=== PATIENT | male | born 1985 | race Caucasian/White ===

== ENCOUNTER 2016-10-18 21:55 | Day surgery (SDC) | payer OTHER ==
[~2016-10-18] VITALS: Ht 177.8 cm; Wt 92.3 kg
[2016-10-18 22:30] LABS: HEMATOCRIT 47.7 % (38.0-50.0); MCH 30.1 PG (29.0-34.0); MCV 86.1 FL (86-99); MEAN PLAT.VOLUME 10.4 uM^3 (9.0-12.4); PLATELET COUNT 271 K/uL (156-360); RBC DIS.WIDTH-CV 11.9 % (11.8-14.6); RBC DIS.WIDTH-SD 37.5 % (39-53); RED BLOOD COUNT 5.54 M/uL (4.00-5.50); WHITE BLOOD COUNT 11.4 K/uL (4.1-10.2)
[2016-10-18 22:42] LABS: CHLORIDE 106 mEq/L (99-109); SODIUM 138 mEq/L (136-147)
[2016-10-18 22:44] LABS: GLUCOSE 114 mg/dL (70-99)
[2016-10-18 22:46] LABS: ANION GAP 11 MEQ/L (2-14); TOTAL BILIRUBIN 1.1 mg/dL (0.0-1.0)
[2016-10-18 22:48] LABS: ALKALINE PHOSPHATASE 69 IU/L (3-129); GFR ESTIMATE (CALCULATED) > 59 mL/min/
[2016-10-18 22:49] LABS: UREA NITROGEN (BUN) 10 mg/dL (9-23)
[2016-10-18] MEDS ORDERED: MEN'S ONE DAIL1 EACH PO (23:33)
[2016-10-18] MEDS ORDERED: ALKA-SELTZER G1 EAC1 PO (23:33)
[2016-10-19 00:31] LABS: ADD MIUA? NO; BILIRUBIN NEGATIVE; BLOOD NEGATIVE; COLOR YELLOW ((YELLOW)); GLUCOSE (STRIP) NEGATIVE; KETONES 5; LEUKOCYTES NEGATIVE; NITRITE NEGATIVE; PROTEIN (STRIP) NEGATIVE; SPECIFIC GRAVITY 1.026 (1.000-1.030); UCUL ADDED? NO; UROBILINOGEN 0.2 MG/DL (0.2-1.0)
[2016-10-19 08:24] VITALS: BP 124/60
[2016-10-19 12:06] VITALS: BP 113/59
[2016-10-19 16:14] VITALS: BP 110/55
[2016-10-19 19:24] VITALS: BP 129/67
[2016-10-19] MEDS ORDERED: COLACE100 MG PO (21:11)
[2016-10-19] MEDS ORDERED: HYDROCODON-ACE1 EAC7 PO (21:11)
== END 2016-10-19 22:29 | disposition home or self-care (01) ==
LOC: EME 21:55 → SDC 10-19 00:24 → 2SOUTH 10-19 01:45 → 2EASTP 10-19 01:45 → 2SOUTH 10-19 01:45 → 2EASTP 10-19 02:41
PROC: 0DTJ0ZZ Resection of Appendix, Open Approach (ICD-10-PCS; principal; 2016-10-19)
DX: K35.2 Acute appendicitis with generalized peritonitis (principal); Z91.030 Bee allergy status
CPT/HCPCS: 74177; 80053; 81003; 85027; 88304; 99281; 99285; G0378; J0330; J1100; J1170; J1644; J1885; J2270; J2405; J2543; J2710; J3010; J7030; J7120